=== PATIENT | male | born 1985 | race Caucasian/White ===

== ENCOUNTER 2017-02-28 13:50 | Emergency (ER) | payer BC ==
[~2017-02-28] VITALS: Ht 172.7 cm; Wt 89.0 kg
[2017-02-28 13:53] VITALS: Ht 172.7 cm; Wt 89.0 kg
[2017-02-28] MEDS ORDERED: ONDANSETRON 4 MG INJ IV STA (14:16)
[2017-02-28] MEDS ORDERED: morphine 4 MG/ML VIAL IV STA (14:16)
--- NOTE | 2017-02-28 14:26 | ERD ---
ER Documentation Chief Complaint Date/Time DATE: 02/28/17 TIME: 14:20 Chief Complaint ap since last night HPI 31-year-old male presents emergency department for abdominal pain that started last night. Pain started in epigastric area then went down to his right lower abdominal ear that radiates to his right lower back. Patient stated that he vomited thrice last night and twice today. Denies headache, loss of consciousness, dizziness, blurry vision, changes in vision, photophobia, facial pain, ear pain, throat pain, difficulty swallowing, neck pain, shoulder pain, chest pain, cough, hemoptysis, loss of appetite, hematochezia, diarrhea, constipation, urinary symptoms, bladder and bowel incontinences, extremity weakness, extremity tenderness, numbness or tingling sensation, difficulty walking, recent travel, recent exposure to illness, recent antibiotic use in the last 3 months, fever, chills. No known drug allergies. No past medical history. No surgical history. Family history: Denies family history of cardiac before the age of 50, stroke, aortic aneurysm. Not taking any prescription medication at home. 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 Denies smoking, use of alcohol, use of illegal drugs. ROS All systems reviewed and are negative except as per history of present illness. Medications Home Meds Reported Medications [None] No Conflict Check 02/07/10 Allergies Allergies: Coded Allergies: No Known Allergies (Verified Allergy, Mild, 03/14/14) PMhx/Soc History of Surgery: No Anesthesia Reaction: No Hx Neurological Disorder: No Hx Respiratory Disorders: No Hx Cardiac Disorders: No Hx Psychiatric Problems: No Hx Miscellaneous Medical Probl: No Hx Alcohol Use: No Hx Substance Use: No Hx Tobacco Use: No Physical Exam Vitals Vital Signs Date Time Temp Pulse Resp B/P Pulse Ox O2 Delivery O2 Flow Rate FiO2 02/28/17 13:53 100.3 89 132/88 99 Physical Exam CONSTITUTIONAL: Well-appearing; well-nourished; in no apparent distress. HEAD: Normocephalic; atraumatic. EYES: Conjunctiva clear, sclera non-icteric, EOM intact. PERRL Ears: Hearing intact. EACs clear, TMs non-bulging, non-inflamed, translucent & mobile, ossicles normal appearance, No obstructions, no erythema, no discharges Nose: No obstructions. No polyps. No external lesions. Mucosa non-inflamed. No external lesions, septum and turbinates normal. No rhinorrhea. No discharges. Frontal sinus is non-tender to palpation. Maxillary sinus is non-tender to palpation. MOUTH: Moist mucous membranes, no lesion, no obstructions, no vesicles, no thrush, patent airway Throat: Uvula in midline. Right tonsil is +1 with no erythema, no exudate. Left tonsil is +1 with no erythema, no exudate. Tolerating secretions well. Good gag reflex. Patent airway. Neck: Supple, without lesions, bruits, or adenopathy. No mass. Thyroid non- enlarged and non-tender to palpation. CHEST: Symmetrical chest. Respirations even and not labored. No retractions noted. CARDIOVASCULAR: Normal S1, S2. RRR. No murmurs, gallops. RESPIRATORY: Normal chest excursion with respiration; breath sounds clear and equal bilaterally; no wheezes, rhonchi, or rales. Breathing even and unlabored. Speaking in clear, full, and complete sentences w/ ease. ABDOMEN: Normal bowel sounds normal. Soft, round, non-distended, no organomegaly , no masses, no pulsating abdominal mass. Has right lower abdominal tenderness on light and deep palpation. Has rebound tenderness to right lower abdominal area. Developed right-sided abdominal pain after jumping once. No hernia. No peritoneal signs. : No CVA tenderness. BACK: Symmetrical shoulder. Spine is midline without deformity, tenderness. No evidence of trauma or deformity. PELVIS: Stable pelvis. No evidence of trauma or deformity. MUSCULOSKELETAL: Normal gait and station. No misalignment, asymmetry, crepitation, defects, tenderness, masses, effusions, decreased range of motion, instability, atrophy or abnormal strength or tone in the head, neck, spine, ribs , pelvis or extremities. No calf tenderness. NEUROVASCULAR: Distal pulses are present. Pedal pulse are present, equal, and normal. Capillary refills are < 2 seconds. NEUROLOGIC: Alert and oriented x4. Speaks full and clear sentences. Cranial Nerves II-XII normal. Sensation to pain, touch, and proprioception normal. Grossly unremarkable. No neurologic deficits. Romberg test is negative. PSYCHOLOGICAL: The patients mood and manner are appropriate. No hallucinations , delusions. Not SI. Not HI. Has the capacity to decide for self SKIN: Normal for age and ethnicity; warm; dry; good turgor; no apparent lesions or exudates. No rashes, hives, discoloration. Intact. Result Diagram: 02/28/17 1420 02/28/17 1420 Results 24 hrs Laboratory Tests Test 02/28/17 14:20 White Blood Count 9.010^3/ul Red Blood Count 5.5310^6/ul Hemoglobin 17.1g/dl Hematocrit 49.4% Mean Corpuscular Volume 89.3fl Mean Corpuscular Hemoglobin 30.9pg Mean Corpuscular Hemoglobin Concent 34.6g/dl Red Cell Distribution Width 12.7% Platelet Count 93871^3/UL Mean Platelet Volume 10.8fl Neutrophils % 74.3% Lymphocytes % 16.2% Monocytes % 7.5% Eosinophils % 1.1% Basophils % 0.3% Nucleated Red Blood Cells % 0.0/100WBC Neutrophils # 6.710^3/ul Lymphocytes # 1.510^3/ul Monocytes # 0.710^3/ul Eosinophils # 0.110^3/ul Basophils # 0.010^3/ul Nucleated Red Blood Cells # 0.010^3/ul Urine Color YELLOW Urine Clarity CLEAR Urine pH 7.0 Urine Specific [place] 1.029 Urine Ketones NEGATIVEmg/dL Urine Nitrite NEGATIVEmg/dL Urine Bilirubin NEGATIVEmg/dL Urine Urobilinogen 1+mg/dL Urine Leukocyte Esterase NEGATIVELeu/ul Urine Microscopic RBC 0/HPF Urine Microscopic WBC 0/HPF Urine Hemoglobin 1+mg/dL Urine Glucose NEGATIVEmg/dL Urine Total Protein NEGATIVEmg/dl Sodium Level 142mmol/L Potassium Level 3.8mmol/L Chloride Level 100mmol/L Carbon Dioxide Level 28mmol/L Anion Gap 18 Blood Urea Nitrogen 15mg/dl Creatinine 1.05mg/dl Glucose Level 87mg/dl Calcium Level 9.2mg/dl Total Bilirubin 0.4mg/dl Direct Bilirubin 0.00mg/dl Indirect Bilirubin 0.4mg/dl Aspartate Amino Transf (AST/SGOT) 37IU/L Alanine Aminotransferase (ALT/SGPT) 56IU/L Alkaline Phosphatase 82IU/L Total Protein 7.7g/dl Albumin 4.7g/dl Globulin 3.00g/dl Albumin/Globulin Ratio 1.56 Amylase Level 77U/L Lipase 71U/L Current Medications Medications (Trade) Dose Ordered Sig/Mike Route PRN Reason Start Time Stop Time Status Last Admin Dose Admin Morphine Sulfate (morphine) 4 mg ONCE STAT IV 02/28/17 14:16 02/28/17 14:24 DC 02/28/17 14:30 Ondansetron HCl (Zofran Inj) 4 mg ONCE STAT IV 02/28/17 14:16 02/28/17 14:24 DC 02/28/17 14:30 Acetaminophen 650 mg 650 mg ONCE ONCE PO 02/28/17 14:30 02/28/17 14:31 DC 02/28/17 14:30 Sodium Chloride (NS) 500 ml @ 500 mls/hr Q1H ONCE IV 02/28/17 14:30 02/28/17 15:29 DC 02/28/17 14:31 IV Flush 10 ml 10 ml STK-MED ONCE .ROUTE 02/28/17 15:50 02/28/17 15:51 DC Sodium Chloride (NS) 100 ml @ ud STK-MED ONCE .ROUTE 02/28/17 15:50 02/28/17 15:51 DC Iohexol (Omnipaque 300mg/ ml) 150 ml STK-MED ONCE .ROUTE 02/28/17 15:50 02/28/17 15:51 DC Hydromorphone HCl (Dilaudid) 1 mg ONCE STAT IV 02/28/17 16:00 02/28/17 16:02 DC 02/28/17 16:20 Ketorolac Tromethamine (Toradol) 30 mg ONCE STAT IV 02/28/17 16:00 02/28/17 16:02 DC 02/28/17 16:20 Procedures/MDM Examination: Please see physical examination. Disease process, medical treatment was explained to the patient and family member. They verbalized understanding and agreed with the diagnostic tests, medical treatment, and follow-up care. Radiology: CT of the abdomen and pelvis with IV contrast Impression: No evidence of urolithiasis, diverticulitis or appendicitis. 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 Blood works: Reviewed. Urinalysis: Reviewed. Treatment: IV insertion. IV normal saline bolus. Re-evaluation: Denies headache, dizziness, blurry vision, neck pain, shoulder pain, chest pain, back pain, abdominal pain, nausea, vomiting. No episode of emesis in the emergency department. Alert and oriented 4. Speaks full and clear sentences. Respirations even and unlabored. Lung sounds clear to auscultation. Active bowel sounds. There is no right upper/right lower/ epigastric/left upper/left lower abdominal tenderness and light and deep palpation. Negative on Rovsings sign. Negative [place] sign. Able to jump 5 times without developing right-sided abdominal pain. No peritoneal signs. Ambulatory with steady gait. No neurovascular deficits. No neurological deficits. Consultation: None. Differential diagnosis: Abdominal aortic aneurysm versus appendicitis versus ruptured appendix versus cholecystitis versus pancreatitis versus abdominal colic versus urinary tract infection versus gastroenteritis Medical decision m[age]-year-old male presents emergency department for abdominal pain that started last night. Pain started in epigastric area then went down to his right lower abdominal ear that radiates to his right lower back. Patient stated that he vomited thrice last night and twice today. Patient's complaint, patient's history about his complaint, my physical findings , diagnostic test results, my reevaluation are consistent my final diagnosis of severe hydroureteronephrosis which is an incidental finding, abdominal pain. Case was discussed with attending physician, Dr. Hardeep Reese who agreed in my medical decision making to discharge the patient and have the patient be reevaluated in 8 hours. Plan of care was discussed with the patient and his they both agreed with the plan of care.. Medications prescribed are the following: Zofran. Hamer. Pepcid. Patient and family member are made aware of the side effects and adverse reactions of the medications prescribed. Instructed on when to seek emergent and medical attention in case allergic/anaphylactic reactions or severe side effects and or adverse reactions to medications. Patient and family member verbalized understanding. Patient instructed Instructed to follow-up with his PCP in 24-48 hours. Follow-up in 8 hours or come back in the emergency department in 8 hours for a reevaluation. Instructed to Call 911 for chest pain, shortness of breath. Advised to come back here in ED as soon as possible for severity of symptoms which includes but not limited to: any new symptoms; shortness of breath/difficulty of breathing; cardiovascular changes; severe gastrointestinal symptoms; signs and symptoms of bleeding and or infection; signs of compartment syndrome/neurovascular changes; neurological changes/deficits. Patient and family member verbalized understanding. Upon discharge, patient is alert and oriented x 4, speaks full and clear sentences, denies pain, has no neurological deficits, has no neurovascular deficits, difficulty of breathing. Breathing even and unlabored. Lung sounds are clear to auscultation. Not in distress. Appears comfortable. Ambulatory with steady gait. Appears satisfied with care provided here in ED. Departure Diagnosis: Primary Impression: Abdominal pain Additional Impression: Hydronephrosis Condition: Good Additional Instructions: Instructed to follow-up with his PCP in 24-48 hours. Follow-up in 8 hours or come back in the emergency department in 8 hours for a reevaluation. Instructed to Call 911 for chest pain, shortness of breath. Advised to come back here in ED as soon as possible for severity of symptoms which includes but not limited to: any new symptoms; shortness of breath/difficulty of breathing; cardiovascular changes; severe gastrointestinal symptoms; signs and symptoms of bleeding and or infection; signs of compartment syndrome/neurovascular changes; neurological changes/deficits. Patient and family member verbalized understanding. MIGDALIA ZHENG Feb 28, 2017 14:26
[2017-02-28] MEDS ORDERED: SOD CHLORIDE 0.9% 500 ML IV ONE (14:30)
[2017-02-28] MEDS ORDERED: ACETAMINOPHEN 325 MG TAB PO ONE (14:30)
[2017-02-28 14:46] LABS: ADD SCAN DIFF NO
[2017-02-28 14:50] LABS: BASOPHILS % 0.3 % (0.0-2.0); EOSINOPHILS # 0.1 10^3/ul (0.0-0.5); EOSINOPHILS % 1.1 % (0.0-7.0); HEMATOCRIT 49.4 % (42.0-52.0); HEMOGLOBIN 17.1 g/dl (14.0-18.0); LYMPHOCYTES # 1.5 10^3/ul (0.8-2.9); LYMPHOCYTES % 16.2 % (15.0-51.0); MEAN CORPUSCULAR HEMOGLOBIN 30.9 pg (29.0-33.0); MEAN CORPUSCULAR HGB CONC 34.6 g/dl (32.0-37.0); MEAN CORPUSCULAR VOLUME 89.3 fl (82.0-101.0); MEAN PLATELET VOLUME 10.8 fl (7.4-10.4); MONOCYTE # 0.7 10^3/ul (0.3-0.9); MONOCYTES % 7.5 % (0.0-11.0); NEUTROPHIL # 6.7 10^3/ul (1.6-7.5); NEUTROPHILS % 74.3 % (39.0-77.0); PLATELET COUNT 203 10^3/UL (140-415); RED BLOOD COUNT 5.53 10^6/ul (4.70-6.10); RED CELL DISTRIBUTION WIDTH 12.7 % (11.5-14.5)
[2017-02-28 15:01] LABS: ADD UMIC YES; UR ASCORBIC ACID NEGATIVE (NEGATIVE); UR BILIRUBIN (Dip) NEGATIVE (NEGATIVE); UR BLOOD (Dip) 1+ mg/dL (NEGATIVE); UR CLARITY CLEAR (CLEAR); UR COLOR YELLOW (YELLOW); UR GLUCOSE (Dip) NEGATIVE (NEGATIVE); UR KETONES (Dip) NEGATIVE (NEGATIVE); UR LEUKOCYTE ESTERASE (Dip) NEGATIVE Leu/ul (NEGATIVE); UR NITRITE (Dip) NEGATIVE (NEGATIVE); UR RBC 0 /HPF (0-5); UR SPECIFIC GRAVITY (Dip) 1.029 (1.003-1.030); UR TOTAL PROTEIN (Dip) NEGATIVE (NEGATIVE); UR UROBILINOGEN (Dip) 1+ mg/dL (NEGATIVE)
[2017-02-28 15:19] LABS: ALBUMIN 4.7 g/dl (3.3-4.9); ALBUMIN/GLOBULIN RATIO 1.56; BILIRUBIN,INDIRECT 0.4 mg/dl (0-1.1); BILIRUBIN,TOTAL 0.4 mg/dl (0.2-1.3); CALCIUM 9.2 mg/dl (8.4-10.2); CREATININE 1.05 mg/dl (0.61-1.24); POTASSIUM 3.8 mmol/L (3.5-5.1); TOTAL PROTEIN 7.7 g/dl (6.1-8.1)
[2017-02-28] MEDS ORDERED: SOD CHLORIDE 0.9% 100 ML ONE (15:50)
[2017-02-28] MEDS ORDERED: IOHEXOL 300MG/ML 150 ML BTL ONE (15:50)
[2017-02-28] MEDS ORDERED: HYDROmorphONE 1 MG/ML SYG IV STA (16:00)
[2017-02-28] MEDS ORDERED: KETOROLAC 30 MG INJ IV STA (16:00)
--- NOTE | 2017-02-28 16:37 | RADRPT ---
PROCEDURE: CT abdomen and pelvis with intravenous contrast. CLINICAL INDICATION: right lower abdominal pain TECHNIQUE: Following intravenous contrast, spiral CT of the abdomen pelvis was performed and is re constructed at 2.5 mm contiguous axial intervals from the dome of the diaphragm to the inferior pubi c rami. Computer reformatted coronal and sagittal images are included. CT D I 21 millicurie Dose 1358 millicurie per centimeter COMPARISON: CT abdomen pelvis March 14, 2014 FINDINGS: Lung bases are clear of any infiltrate or mass. There is no effusion. The liver is of normal size and contour with no mass or intrahepatic ductal dilatation. There is fat ty infiltration. No gallstones are present. No splenic, adrenal or pancreatic abnormalities present. Kidneys enhance symmetrically. No hydronephrosis, calculus or masses present in the right kidney. Noted is a duplicated left collecting system with severe hydroureter nephrosis of the upper pole calderon ety. There is ectopic insertion of the left upper pole ureter apparently within the prostatic porti on of the urethra. The mid and lower pole intrarenal collecting system and ureter are of normal cou rse and caliber with no stone. The right. Ureter is of normal course and caliber with no stone. N o bladder mass or stone is present. Uterus and ovaries are normal. No bowel mass or obstruction is seen. The appendix is normal. There is no phlegmon, ascites or pne umoperitoneum. No aneurysm is detected. There is no adenopathy. The osseous structures are intact. IMPRESSION: No evidence of urolithiasis, diverticulitis or appendicitis. 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 .Placido Sands MD, Date Time Electronically viewed and signed by .Placido Sands MD, on 02/28/2017 16:36 .A/
[2017-02-28] MEDS ORDERED: ONDA4TAB14 PO (17:04)
[2017-02-28] MEDS ORDERED: FAMO-96 PO (17:04)
[2017-02-28] MEDS ORDERED: HYDR-906 PO (17:04)
[2017-02-28 17:54] VITALS: BP 128/75; PULSE 61; RESP 16; TEMP 98.9
== END 2017-02-28 17:55 | disposition home or self-care (01) ==
LOC: FTE 13:50
DX: R10.31 Right lower quadrant pain (principal); N13.30 Unspecified hydronephrosis
CPT/HCPCS: 74177; 80053; 81001; 82150; 83690; 85025; 96374; 96375; 99285; J1170; J1885; J2270; J2405; J7040; Q9967

== ENCOUNTER 2017-06-30 14:52 | Emergency (ER) | payer BC ==
[~2017-06-30] VITALS: Wt 100.0 kg
[~2017-06-30 14:52] MED LIST: FAMO-96 PO; HYDR-906 PO; ONDA4TAB14 PO
[2017-06-30] MEDS ORDERED: ONDANSETRON 4 MG INJ IV STA (16:31)
[2017-06-30] MEDS ORDERED: ACETAMINOPHEN 325 MG TAB PO ONE (17:00)
[2017-06-30] MEDS ORDERED: FAMOTIDINE 20 MG INJ IV ONE (17:00)
[2017-06-30] MEDS ORDERED: LIDOCAINE/MYLANTA 40 ML BTL PO ONE (17:00)
[2017-06-30] MEDS ORDERED: SOD CHLORIDE 0.9% 1,000 ML IV ONE (17:00)
[2017-06-30 17:25] LABS: BASOPHILS % 0.4 % (0.0-2.0); EOSINOPHILS # 0.2 10^3/ul (0.0-0.5); EOSINOPHILS % 1.5 % (0.0-7.0); HEMATOCRIT 50.7 % (42.0-52.0); HEMOGLOBIN 17.9 g/dl (14.0-18.0); LYMPHOCYTES # 1.5 10^3/ul (0.8-2.9); LYMPHOCYTES % 13.4 % (15.0-51.0); MEAN CORPUSCULAR HEMOGLOBIN 31.6 pg (29.0-33.0); MEAN CORPUSCULAR HGB CONC 35.3 g/dl (32.0-37.0); MEAN CORPUSCULAR VOLUME 89.6 fl (82.0-101.0); MEAN PLATELET VOLUME 11.2 fl (7.4-10.4); MONOCYTE # 0.8 10^3/ul (0.3-0.9); MONOCYTES % 7.6 % (0.0-11.0); NEUTROPHIL # 8.3 10^3/ul (1.6-7.5); NEUTROPHILS % 76.6 % (39.0-77.0); PLATELET COUNT 202 10^3/UL (140-415); RED BLOOD COUNT 5.66 10^6/ul (4.70-6.10); RED CELL DISTRIBUTION WIDTH 12.7 % (11.5-14.5); WHITE BLOOD COUNT 10.8 10^3/ul (4.8-10.8)
[2017-06-30 17:36] LABS: ADD UMIC NO; UR ASCORBIC ACID NEGATIVE (NEGATIVE); UR BILIRUBIN (Dip) NEGATIVE (NEGATIVE); UR BLOOD (Dip) NEGATIVE (NEGATIVE); UR CLARITY CLEAR (CLEAR); UR COLOR YELLOW (YELLOW); UR GLUCOSE (Dip) NEGATIVE (NEGATIVE); UR KETONES (Dip) NEGATIVE (NEGATIVE); UR LEUKOCYTE ESTERASE (Dip) NEGATIVE Leu/ul (NEGATIVE); UR NITRITE (Dip) NEGATIVE (NEGATIVE); UR SPECIFIC GRAVITY (Dip) 1.025 (1.003-1.030); UR TOTAL PROTEIN (Dip) NEGATIVE (NEGATIVE); UR UROBILINOGEN (Dip) 1+ mg/dL (NEGATIVE)
[2017-06-30 17:43] LABS: ALBUMIN 4.4 g/dl (3.3-4.9); ALBUMIN/GLOBULIN RATIO 1.41; BILIRUBIN,INDIRECT 0.6 mg/dl (0-1.1); BILIRUBIN,TOTAL 0.6 mg/dl (0.2-1.3); CALCIUM 8.5 mg/dl (8.4-10.2); CREATININE 0.88 mg/dl (0.61-1.24); POTASSIUM 3.8 mmol/L (3.5-5.1); TOTAL PROTEIN 7.5 g/dl (6.1-8.1)
--- NOTE | 2017-06-30 17:44 | RADRPT ---
PROCEDURE: US Abdomen (right upper quadrant). CLINICAL INDICATION: Right upper quadrant abdomen pain. TECHNIQUE: Multiple real-time longitudinal and transverse images of the right upper quadrant of th e abdomen were acquired utilizing a curved array transducer. Images were reviewed on a high-resoluti on PACS workstation. COMPARISON: CT scan of the abdomen and pelvis dated 02/28/2017. FINDINGS: The liver is normal in size and normal in echogenicity. There is no focal hepatic lesion. Color Doppler and pulsed Doppler sonography demonstrate normal a ntegrade flow in the portal vein. The gallbladder is normal with no stones or wall thickening. There is no pericholecystic fluid martinez ection. The bile ducts are normal with the common bile duct measuring 2.5 mm in diameter. The visualized portions of the pancreas are unremarkable with obscuration of the tail of the pancrea s. No free fluid is present. The right kidney measures 12.1 x 5.2 x 5.5 cm. There is normal echogenicity of the right kidney. There is no perinephric fluid collection. No hydronephrosis, mass, or calculus is seen. IMPRESSION: 1. Unremarkable right upper quadrant abdomen ultrasound. RPTAT: QQ .Manjit Coker MD, MD Date Time Electronically viewed and signed by .Manjit Coker MD, on 06/30/2017 17:43 .R/
[2017-06-30] MEDS ORDERED: morphine 4 MG/ML VIAL IV STA (18:20)
[2017-06-30] MEDS ORDERED: PANTOPRAZOLE 40 MG INJ IV ONE (19:00)
[2017-06-30] MEDS ORDERED: HYDROmorphONE 1 MG/ML SYG IV STA (19:45)
--- NOTE | 2017-06-30 20:17 | RADRPT ---
PROCEDURE: CT abdomen and pelvis without contrast. CLINICAL INDICATION: Abdominal Pain TECHNIQUE: CT scan of the abdomen and pelvis without contrast was performed and is reconstructed a t 2.5 mm contiguous axial intervals from the dome of the diaphragm to the inferior pubic rami.. The patient was scanned without intravenous contrast. Sagittal and coronal reformatted images were obt ained from the axial source images. The calculated radiation dose measures of 1599 mGy centimeters. The CTDI measures 23 mGy. Individualized dose optimization technique was used for the performance of this exam. This included 1. Automated exposure control. 2. Adjustment of the mA and / or kV according to the patient's size. 3. Use of iterative reconstructed technique. COMPARISON: CT abdomen pelvis February 28, 2017 FINDINGS: The lung bases are clear of any infiltrate or nodule. No effusion is seen. The liver measures 19 cm in length. There is fatty infiltration. No mass or ductal dilatation is pre sent. No gallstones are visualized. No splenic, adrenal or pancreatic abnormalities present. Right kidney is of normal size and contour. No hydronephrosis, calculus or masses seen. The urete r is of normal course and caliber with no stone. Noted is a completely duplicated left collecting s ystem. There is severe hydroureter nephrosis of the upper pole moiety with no residual parenchyma. T he ureter appears to insert an ectopic location likely within the prostatic urethra. The lower pole moiety appears normal with no hydronephrosis, calculus or mass and the ureter is of normal course an d caliber with no stone. No bladder mass or stone is present. There is no aneurysm. No adenopathy is present. No bowel mass or obstruction is present. The appendix is normal. No phlegmon, ascites or pneumop eritoneum is visualized. The osseous structures are intact. 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 Enlarged fatty liver. No evidence of urolithiasis, appendicitis or diverticulitis. .Placido Sands MD, MD Date Time Electronically viewed and signed by .Placido Sands MD, on 06/30/2017 20:17 .A/
[2017-06-30] MEDS ORDERED: OMEP20CA16 PO (20:44)
[2017-06-30] MEDS ORDERED: ACET325T33 PO (20:44)
[2017-06-30] MEDS ORDERED: ONDA4TAB14 PO (20:44)
[2017-06-30 20:53] VITALS: BP 115/79; PULSE 69; RESP 18
--- NOTE | 2017-06-30 21:37 | ERD ---
ER Documentation Chief Complaint Chief Complaint abd pain w n/v HPI 31-year-old male patient with no significant past medical history presents to the ED complaining of abdominal pain that started earlier today. States that patient has nausea and a few episodes of nonbilious nonbloody vomiting. Denies any diarrhea, chest pain, wheezing, constipation, melena, bloody stools, hematemesis. Worse that this pain feels worse than when he was in February. States that he did go to [place] and had an endoscopy which diagnosed him with a gastric ulcer as well as acid reflux however states that this does not feel like a burning sensation and is not worse with eating food. States that he has not followed up with a specialist here in [place]. ROS All systems reviewed and are negative except as per history of present illness. Medications Home Meds Active Scripts Acetaminophen* (Tylenol*) 325 Mg Tablet, 2 TAB PO Q8 Y for PAIN AND OR ELEVATED TEMP, #20 TAB Prov:KENNETH STAPLES PA-C 06/30/17 Omeprazole* (Omeprazole*) 20 Mg Capsule.dr, 20 MG PO BID, #20 Prov:KENNETH STAPLES PA-C 06/30/17 Ondansetron (Ondansetron Odt) 4 Mg Tab.rapdis, 4 MG PO Q6H Y for NAUSEA AND/OR VOMITING, #10 TAB Prov:KENNETH STAPLES PA-C 06/30/17 Ondansetron (Ondansetron Odt) 4 Mg Tab.rapdis, 4 MG PO Q8 Y for NAUSEA AND/OR VOMITING, #20 TAB Prov:MIGDALIA ZHENG 02/28/17 Famotidine* (Pepcid*) 20 Mg Tablet, 40 MG PO DAILY for 28 Days, TAB Prov:MIGDALIA ZHENG 02/28/17 Hydrocodone/Acetaminophen ([place] 5-325 Tablet) 1 Each Tablet, 1 TAB PO Q6H Y for PAIN, #15 TAB Prov:MIGDALIA ZHENG 02/28/17 Reported Medications [None] No Conflict Check 02/07/10 Allergies Allergies: Coded Allergies: No Known Allergies (Verified Allergy, Mild, 06/30/17) PMhx/Soc History of Surgery: No Anesthesia Reaction: No Hx Neurological Disorder: No Hx Respiratory Disorders: No Hx Cardiac Disorders: No Hx Psychiatric Problems: No Hx Miscellaneous Medical Probl: No Hx Alcohol Use: Yes (SOCAILLY) Hx Substance Use: No Hx Tobacco Use: Yes Smoking Status: Current every day smoker Physical Exam Vitals Vital Signs Date Time Temp Pulse Resp B/P Pulse Ox O2 Delivery O2 Flow Rate FiO2 06/30/17 20:53 69 18 115/79 99 Room Air 06/30/17 19:30 72 20 121/77 98 Room Air 06/30/17 14:54 100.2 83 20 135/88 99 Physical Exam Const: [id number], well-nourished. In no acute distress. Head: Atraumatic, normocephalic Eyes: Normal Conjunctiva without injection. No purulent discharge. ENT: Normal external ear, nose. Moist oropharynx without tonsillar exudates. Non -erythematous pharynx. Uvula midline. No drooling. No trismus. Neck: No cervical midline tenderness. Full range of motion. No meningismus. No cervical lymphadenopathy. No JVD. Resp: Clear to auscultation bilaterally. No wheezing, rhonchi, rales, or crackles. No accessory muscle use. No retractions. Cardio: Regular rate and rhythm. No murmurs, rubs or gallops. Abd: Soft, generalized tenderness, non distended. Normal bowel sounds. No palpable masses. No rebound tenderness. No guarding. Negative McBurney's point. Negative psoas sign. Negative obturator sign. Skin: No petechiae or rashes Back: No midline tenderness. No CVA tenderness. Ext: No cyanosis, or edema. Neur: Awake and alert. Normal gait. Normal coordination. Psych: Normal Mood and Affect Results 24 hrs Laboratory Tests Test 06/30/17 16:50 06/30/17 17:03 White Blood Count 10.810^3/ul Red Blood Count 5.6610^6/ul Hemoglobin 17.9g/dl Hematocrit 50.7% Mean Corpuscular Volume 89.6fl Mean Corpuscular Hemoglobin 31.6pg Mean Corpuscular Hemoglobin Concent 35.3g/dl Red Cell Distribution Width 12.7% Platelet Count 93840^3/UL Mean Platelet Volume 11.2fl Neutrophils % 76.6% Lymphocytes % 13.4% Monocytes % 7.6% Eosinophils % 1.5% Basophils % 0.4% Nucleated Red Blood Cells % 0.0/100WBC Neutrophils # 8.310^3/ul Lymphocytes # 1.510^3/ul Monocytes # 0.810^3/ul Eosinophils # 0.210^3/ul Basophils # 0.010^3/ul Nucleated Red Blood Cells # 0.010^3/ul Sodium Level 141mmol/L Potassium Level 3.8mmol/L Chloride Level 104mmol/L Carbon Dioxide Level 25mmol/L Anion Gap 16 Blood Urea Nitrogen 13mg/dl Creatinine 0.88mg/dl Glucose Level 86mg/dl Calcium Level 8.5mg/dl Total Bilirubin 0.6mg/dl Direct Bilirubin 0.00mg/dl Indirect Bilirubin 0.6mg/dl Aspartate Amino Transf (AST/SGOT) 36IU/L Alanine Aminotransferase (ALT/SGPT) 53IU/L Alkaline Phosphatase 93IU/L Total Protein 7.5g/dl Albumin 4.4g/dl Globulin 3.10g/dl Albumin/Globulin Ratio 1.41 Lipase 90U/L Urine Color YELLOW Urine Clarity CLEAR Urine pH 5.0 Urine Specific [place] 1.025 Urine Ketones NEGATIVEmg/dL Urine Nitrite NEGATIVEmg/dL Urine Bilirubin NEGATIVEmg/dL Urine Urobilinogen 1+mg/dL Urine Leukocyte Esterase NEGATIVELeu/ul Urine Hemoglobin NEGATIVEmg/dL Urine Glucose NEGATIVEmg/dL Urine Total Protein NEGATIVEmg/dl Current Medications Medications (Trade) Dose Ordered Sig/Mike Route PRN Reason Start Time Stop Time Status Last Admin Dose Admin Miscellaneous Medication (Gi Cocktail (2)) 40 ml ONCE ONCE PO 06/30/17 17:00 06/30/17 17:01 DC 06/30/17 16:59 Famotidine (Pepcid Iv) 20 mg ONCE ONCE IV 06/30/17 17:00 06/30/17 17:01 DC 06/30/17 17:00 Ondansetron HCl 4 mg 4 mg ONCE STAT IV 06/30/17 16:31 06/30/17 16:35 DC 06/30/17 17:00 Sodium Chloride (NS) 1,000 ml @ 1,000 mls/hr Q1H ONCE IV 06/30/17 17:00 06/30/17 17:59 DC 06/30/17 17:00 Acetaminophen (Tylenol Tab) 650 mg ONCE ONCE PO 06/30/17 17:00 118/17 17:01 DC 06/30/17 17:00 Morphine Sulfate (morphine) 4 mg ONCE STAT IV 06/30/17 18:20 06/30/17 18:22 DC 06/30/17 18:26 Pantoprazole (Protonix Iv) 40 mg ONCE ONCE IV 06/30/17 19:00 06/30/17 19:01 DC 06/30/17 19:01 Hydromorphone HCl (Dilaudid) 1 mg ONCE STAT IV 06/30/17 19:45 06/30/17 19:46 DC 06/30/17 19:49 Procedures/MDM This is a 31-year-old male patient with no significant past medical history presents to the ED complaining of abdominal pain that started with nausea and vomiting earlier today. Patient has a low-grade fever 100.2. Patient was further worked up with CBC, CMP, lipase, UA, gallbladder ultrasound. Patient is still experiencing abdominal pain despite receiving pain medications, CT of the abdomen and pelvis without contrast to further evaluate patient.. Patient' s pain and symptoms have improved after treatment with 4 mg IV morphine, 1 mg IV Dilaudid, GI cocktail, 20 mg IV famotidine, 40 mg IV Protonix. CBC: No leukocytosis. No e/o of systemic infection. No e/o anemia. CMP: No e/o severe acidosis, alkalosis, renal failure, diabetic ketoacidosis, liver disease Lipase within normal limits. Urine: No leukocyte esterase, no nitrites, no hematuria. PROCEDURE: CT abdomen and pelvis without contrast. CLINICAL INDICATION: Abdominal Pain TECHNIQUE: CT scan of the abdomen and pelvis without contrast was performed and is reconstructed at 2.5 mm contiguous axial intervals from the dome of the diaphragm to the inferior pubic rami.. The patient was scanned without intravenous contrast. Sagittal and coronal reformatted images were obtained from the axial source images. The calculated radiation dose measures of 1599 mGy centimeters. The CTDI measures 23 mGy. Individualized dose optimization technique was used for the performance of this exam. This included 1. Automated exposure control. 2. Adjustment of the mA and / or kV according to the patient's size. 3. Use of iterative reconstructed technique. COMPARISON: CT abdomen pelvis February 28, 2017 FINDINGS: The lung bases are clear of any infiltrate or nodule. No effusion is seen. The liver measures 19 cm in length. There is fatty infiltration. No mass or ductal dilatation is present. No gallstones are visualized. No splenic, adrenal or pancreatic abnormalities present. Right kidney is of normal size and contour. No hydronephrosis, calculus or masses seen. The ureter is of normal course and caliber with no stone. Noted is a completely duplicated left collecting system. There is severe hydroureter nephrosis of the upper pole moiety with no residual parenchyma. The ureter appears to insert an ectopic location likely within the prostatic urethra. The lower pole moiety appears normal with no hydronephrosis, calculus or mass and the ureter is of normal course and caliber with no stone. No bladder mass or stone is present. There is no aneurysm. No adenopathy is present. No bowel mass or obstruction is present. The appendix is normal. No phlegmon , ascites or pneumoperitoneum is visualized. The osseous structures are intact. 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 Enlarged fatty liver. No evidence of urolithiasis, appendicitis or diverticulitis. PROCEDURE: US Abdomen (right upper quadrant). CLINICAL INDICATION: Right upper quadrant abdomen pain. TECHNIQUE: Multiple real-time longitudinal and transverse images of the right upper quadrant of the abdomen were acquired utilizing a curved array transducer. Images were reviewed on a high-resolution PACS workstation. COMPARISON: CT scan of the abdomen and pelvis dated 02/28/2017. FINDINGS: The liver is normal in size and normal in echogenicity. There is no focal hepatic lesion. Color Doppler and pulsed Doppler sonography demonstrate normal antegrade flow in the portal vein. The gallbladder is normal with no stones or wall thickening. There is no pericholecystic fluid collection. The bile ducts are normal with the common bile duct measuring 2.5 mm in diameter. The visualized portions of the pancreas are unremarkable with obscuration of the tail of the pancreas. No free fluid is present. The right kidney measures 12.1 x 5.2 x 5.5 cm. There is normal echogenicity of the right kidney. There is no perinephric fluid collection. No hydronephrosis, mass, or calculus is seen. IMPRESSION: 1. Unremarkable right upper quadrant abdomen ultrasound. Low suspicion for testicular torsion, gastritis, GERD, peptic ulcer disease, cholecystitis, choledocholithiasis, cholangitis, pancreatitis, appendicitis, bowel obstruction, ileus, volvulus, nephrolithiasis, pyelonephritis, hepatitis, perforated viscus, diverticulitis, abdominal hernia, acute abdomen, mesenteric ischemia or other emergent conditions. Discharge medications: Zofran, Tylenol, Omeprazole Follow up with primary care physician in 1-2 days for referral to jute bag clipper and urologist. Instructed patient to return to the ED sooner for any worsening symptoms. Patient's questions were answered. Patient understood and agreed with discharge plan. Patient discharged stable. Departure Diagnosis: Primary Impression: Abdominal pain Abdominal location: generalized Qualified Code: R10.84 - Generalized abdominal pain Condition: Stable Patient Instructions: Abdominal Pain Referrals: [facility] YOU HAVE RECEIVED A MEDICAL SCREENING EXAM AND THE RESULTS INDICATE THAT YOU DO NOT HAVE A CONDITION THAT REQUIRES URGENT TREATMENT IN THE EMERGENCY DEPARTMENT. FURTHER EVALUATION AND TREATMENT OF YOUR CONDITION CAN WAIT UNTIL YOU ARE SEEN IN YOUR DOCTORS OFFICE WITHIN THE NEXT 1-2 DAYS. IT IS YOUR RESPONSIBILITY TO MAKE AN APPOINTMENT FOR FOLOW-UP CARE. IF YOU HAVE A PRIMARY DOCTOR --you should call your primary doctor and schedule an appointment IF YOU DO NOT HAVE A PRIMARY DOCTOR YOU CAN CALL OUR PHYSICIAN REFERRAL HOTLINE AT IF YOU CAN NOT AFFORD TO SEE A PHYSICIAN YOU CAN CHOSE FROM THE FOLLOWING [facility] [address] [facility]. [facility] [address] [facility]. [facility] [address] [facility] [address] [facility] [address] [facility]. [facility]. [address] [facility]. [facility] YOU HAVE RECEIVED A MEDICAL SCREENING EXAM AND THE RESULTS INDICATE THAT YOU DO NOT HAVE A CONDITION THAT REQUIRES URGENT TREATMENT IN THE EMERGENCY DEPARTMENT. FURTHER EVALUATION AND TREATMENT OF YOUR CONDITION CAN WAIT UNTIL YOU ARE SEEN IN YOUR DOCTORS OFFICE WITHIN THE NEXT 1-2 DAYS. IT IS YOUR RESPONSIBILITY TO MAKE AN APPOINTMENT FOR FOLOW-UP CARE. IF YOU HAVE A PRIMARY DOCTOR --you should call your primary doctor and schedule and appointment IF YOU DO NOT HAVE A PRIMARY DOCTOR YOU CAN CALL OUR PHYSICIAN REFERRAL HOTLINE AT . IF YOU CAN NOT AFFORD TO SEE A PHYSICIAN YOU CAN CHOSE FROM THE FOLLOWING [facility] INSTITUTIONS: [facility] [address] [place] [address] [facility] [address] [place] [address] [facility] [address] [place] [address] [facility] URGENT CARE/SPECIALTIES Additional Instructions: Call your primary care doctor TOMORROW for an appointment during the next 2-3 days for a urologist and jute bag clipper. See the doctor sooner or return here if your condition worsens before your appointment time. KENNETH STAPLES PA-C Jun 30, 2017 21:37 KENNETH STAPLES PA-C Jun 30, 2017 21:37 KENNETH STAPLES PA-C Jun 30, 2017 21:37
== END 2017-06-30 20:54 | disposition home or self-care (01) ==
LOC: FTE 14:52
DX: R10.84 Generalized abdominal pain (principal); F17.210 Nicotine dependence, cigarettes, uncomplicated
CPT/HCPCS: 36415; 74176; 76705; 80053; 81003; 83690; 85025; 96374; 96375; 99285; C9113; J1170; J2270; J2405; J7030

== ENCOUNTER 2018-11-09 11:31 | Emergency (ER) | payer BC, OTHER ==
[~2018-11-09] VITALS: Ht 165.1 cm; Wt 104.5 kg
[~2018-11-09 11:31] MED LIST changes: +ACET325T33 PO; +HYDR-4011 PO; -HYDR-906 PO; +OMEP20CA16 PO
[2018-11-09 12:14] VITALS: Ht 165.1 cm; Wt 104.5 kg
[2018-11-09] MEDS ORDERED: KETOROLAC 30 MG INJ IV STA (13:09)
[2018-11-09] MEDS ORDERED: morphine 4 MG/ML VIAL IM STA (14:44)
[2018-11-09] MEDS ORDERED: FAMO-96 PO (15:33)
--- NOTE | 2018-11-09 15:36 | ERD ---
ER Documentation Chief Complaint Chief Complaint UPPER AP SINCE 0600, PT REPORTING BURNING PAIN WITH UNKNOWN ORIGIN HPI 32-year-old male presents the emergency department complaining of right lower quadrant abdominal pain. Patient states that he awoke at 6 AM with a nonspecific burning type discomfort in his right lower quadrant. This was associated with no fevers, chills. He had one episode of nonbilious, nonbloody emesis. He had no diarrhea. He reported no urinary symptoms. He reported that the pain continued and was con sidered mild to moderate. He has had pain like this before with no known diagnosis. ROS All systems reviewed and are negative except as per history of present illness. Medications Home Meds Active Scripts Famotidine* (Pepcid*) 20 Mg Tablet, 20 MG PO BID for 4 Days, TAB Prov:JOSH CAVAZOS 11/09/18 Acetaminophen* (Tylenol*) 325 Mg Tablet, 2 TAB PO Q8 PRN for PAIN AND OR ELEVATED TEMP, #20 TAB Prov:KENNETH STAPLES PA-C 06/30/17 Omeprazole* (Omeprazole*) 20 Mg Capsule.dr, 20 MG PO BID, #20 Prov:KENNETH STAPLES PA-C 06/30/17 Ondansetron (Ondansetron Odt) 4 Mg Tab.rapdis, 4 MG PO Q6H PRN for NAUSEA AND/OR VOMITING, #10 TAB Prov:KENNETH STAPLES PA-C 06/30/17 Ondansetron (Ondansetron Odt) 4 Mg Tab.rapdis, 4 MG PO Q8 PRN for NAUSEA AND/OR VOMITING, #20 TAB Prov:MIGDALIA ZHNEG 02/28/17 Famotidine* (Pepcid*) 20 Mg Tablet, 40 MG PO DAILY for 28 Days, TAB Prov:MIGDALIA ZHENG 02/28/17 Hydrocodone/Acetaminophen ([place] 5-325 Tablet) 1 Each Tablet, 1 TAB PO Q6H PRN for PAIN, #15 TAB Prov:MIGDALIA ZHENG 02/28/17 Reported Medications [None] No Conflict Check 02/07/10 Allergies Allergies: Coded Allergies: No Known Allergies (Verified Allergy, Mild, 11/09/18) PMhx/Soc History of Surgery: No Anesthesia Reaction: No Hx Neurological Disorder: No Hx Respiratory Disorders: No Hx Cardiac Disorders: No Hx Psychiatric Problems: No Hx Miscellaneous Medical Probl: No Hx Alcohol Use: Yes (SOCAILLY) Hx Substance Use: No Hx Tobacco Use: Yes Smoking Status: Current some day smoker FmHx Noncontributory for chief complaint Physical Exam Vitals Vital Signs Date Temp Pulse Resp B/P (MAP) Pulse Ox O2 O2 Flow FiO2 Time Delivery Rate 11/09/18 99.2 84 16 166/76 99 12:14 (106) Physical Exam GENERAL: The patient is well developed and appropriate for usual state of health in no apparent distress HEENT: Pupils equal, round, and reactive to light. EOMI. There is no scleral icterus. NECK: C-spine is soft and supple, there is no meningismus. There is no cervical lymphadenopathy. LUNGS: Clear to auscultation bilaterally. There are no rales, wheezes or rhonchi. HEART: Regular rate and rhythm, no murmurs, clicks, rubs or gallops. ABDOMEN: Soft, non-tender, non-distended. There are bowel sounds in all four quadrants. No rebound or guarding. EXTREMITIES: There is no peripheral cyanosis or edema. No focal swelling or erythema. NEURO: The patient moves all four extremities with 5/5 strength. Cranial nerves II - XII are intact. Normal gait. Alert and oriented SKIN: There is no apparent rash or petechiae. HEME/LYMPHATIC: There is no evidence of excessive bruising or lymphedema. PSYCHIATRIC: The patient does not appear anxious or depressed. Result Diagram: 11/09/18 1330 11/09/18 1330 Results 24 hrs Laboratory Tests Test 11/09/18 13:30 White Blood Count 9.3 10^3/ul Red Blood Count 5.68 10^6/ul Hemoglobin 17.7 g/dl Hematocrit 51.2 % Mean Corpuscular Volume 90.1 fl Mean Corpuscular Hemoglobin 31.2 pg Mean Corpuscular Hemoglobin Concent 34.6 g/dl Red Cell Distribution Width 12.3 % Platelet Count 248 10^3/UL Mean Platelet Volume 10.6 fl Immature Granulocytes % 0.400 % Neutrophils % 77.9 % Lymphocytes % 13.5 % Monocytes % 7.2 % Eosinophils % 0.6 % Basophils % 0.4 % Nucleated Red Blood Cells % 0.0 /100WBC Immature Granulocytes # 0.040 10^3/ul Neutrophils # 7.2 10^3/ul Lymphocytes # 1.3 10^3/ul Monocytes # 0.7 10^3/ul Eosinophils # 0.1 10^3/ul Basophils # 0.0 10^3/ul Nucleated Red Blood Cells # 0.0 10^3/ul Urine Color YELLOW Urine Clarity CLEAR Urine pH 5.0 Urine Specific [place] 1.020 Urine Ketones NEGATIVE mg/dL Urine Nitrite NEGATIVE mg/dL Urine Bilirubin NEGATIVE mg/dL Urine Urobilinogen NEGATIVE mg/dL Urine Leukocyte Esterase NEGATIVE Amber/ul Urine Hemoglobin NEGATIVE mg/dL Urine Glucose NEGATIVE mg/dL Urine Total Protein NEGATIVE mg/dl Sodium Level 143 mmol/L Potassium Level 3.7 mmol/L Chloride Level 100 mmol/L Carbon Dioxide Level 30 mmol/L Anion Gap 13 Blood Urea Nitrogen 14 mg/dl Creatinine 0.93 mg/dl Est Glomerular Filtrat Rate mL/min > 60 mL/min Glucose Level 95 mg/dl Calcium Level 9.4 mg/dl Total Bilirubin 0.3 mg/dl Direct Bilirubin 0.00 mg/dl Indirect Bilirubin 0.3 mg/dl Aspartate Amino Transf (AST/SGOT) 33 IU/L Alanine Aminotransferase (ALT/SGPT) 34 IU/L Alkaline Phosphatase 93 IU/L Total Protein 8.4 g/dl Albumin 4.8 g/dl Globulin 3.60 g/dl Albumin/Globulin Ratio 1.33 Lipase 80 U/L Current Medications Medications Dose Sig/Mike Start Time Status Last (Trade) Ordered Route PRN Stop Time Admin Dose Reason Admin Ketorolac 30 mg ONCE STAT 11/09/18 DC 11/09/18 Tromethamine IV 13:09 13:18 (Toradol) 11/09/18 13:10 Morphine 4 mg ONCE STAT 11/09/18 DC 11/09/18 Sulfate IM 14:44 14:51 (morphine) 11/09/18 14:46 Procedures/MDM Patient was taken to a room, seen and evaluated. Comfort measures were initiated. Diagnostic tests were ordered and reviewed. RADIOLOGY: Reviewed with the radiologist REEVALUATION: After initial reevaluation, patient continued to be uncomfortable. He was treated with further pain medication. He was then reevaluated a second time with a benign abdominal examination. He states that his pain was completely resolved. His diagnostic tests were reviewed and discussed with him. MEDICAL DECISION MAKING: Patient presents with abdominal pain of uncertain etiology. Differential diagnosis considered includes appendicitis, diverticulitis, cholecystitis and other intra-abdominal medical and surgical concerns. I have reviewed the patients lab studies and imaging as well as multiple examinations of the abdomen. At this time, patient shows no evidence based on clinical examination as well as imaging of appendicitis diverticulitis or other high-risk concerns. He is appropriate for outpatient supportive care. Departure Diagnosis: Primary Impression: Abdominal pain Condition: Stable Patient Instructions: Abdominal Pain Additional Instructions: Consulte a tian mdico para el seguimiento segn lo discutido. Lleve rachel copia de los resultados de tian prueba, si corresponde, a esta visita de seguimiento. Consulte a tian mdico o regrese aqu si lakes[place] s[place] no mejoran yessi se esperaba. En cualquier momento, regrese al departamento de emergencias por cualquier cambio o empeoramiento en lakes[place] s[place]. JOSH CAVAZOS Nov 09, 2018 15:35
[2018-11-09 15:45] VITALS: BP 120/63; PULSE 62; RESP 19
== END 2018-11-09 15:47 | disposition home or self-care (01) ==
LOC: FTE 11:31
DX: R10.9 Unspecified abdominal pain (principal); F17.210 Nicotine dependence, cigarettes, uncomplicated
CPT/HCPCS: 36415; 74176; 80053; 81003; 83690; 85025; 96372; 96374; 99285; J1885; J2270